=== PATIENT | female | born 1980 | race Hispanic/Latino ===

== ENCOUNTER 2019-05-08 18:37 | Emergency (ER) | payer OTHER ==
[~2019-05-08] VITALS: Ht 152.4 cm; Wt 56.0 kg
[2019-05-08 20:15] VITALS: BP 146/72
== END 2019-05-08 20:15 | disposition home or self-care (01) | DRG 605 ==
LOC: ED 18:37
DX: S40.212A Abrasion of left shoulder, initial encounter (principal); S50.812A Abrasion of left forearm, initial encounter; S50.312A Abrasion of left elbow, initial encounter; V86.09XA Driver of other special all-terrain or other off-road motor vehicle injured in traffic accident, initial encounter